=== PATIENT | male | born 1985 | race Caucasian/White ===

== ENCOUNTER 2022-01-26 22:13 | Emergency (ER) | payer OTHER ==
[2022-01-26 22:20] VITALS: TEMP 98.2
[2022-01-26 23:22] LABS: Basophils # (A) 0.1 k/uL (0-0.2); Basophils % (A) 1 %; Eosinophils # (A) 0.4 k/uL (0-0.7); Eosinophils % (A) 2 %; HCT 50.9 % (39.0-53.0); HGB 17.3 gm/dL (13.0-17.5); Lymphocytes # (A) 3.1 k/uL (1.0-4.8); Lymphocytes % (A) 16 %; MCH 32.1 pg (25.0-35.0); MCHC 33.9 g/dL (31.0-37.0); MCV 94.6 fL (80.0-100.0); Mean Platelet Volume 7.8; Monocytes # (A) 0.8 k/uL (0-1.0); Monocytes % (A) 4 %; Neutrophils # (A) 14.6 k/uL (1.3-7.7); Neutrophils % (A) 76 %; Platelet Count 279 k/uL (150-450); RBC 5.38 m/uL (4.30-5.90); WBC 19.3 k/uL (3.8-10.6)
[2022-01-26 23:23] LABS: Appearance,Urine Clear (Clear); Bilirubin,Urine Negative (Negative); Blood,Urine Negative (Negative); Color,Urine Yellow; Glucose,Urine (UA) Negative (Negative); Ketones,Urine Negative (Negative); Leukocyte Esterase,Urine Negative (Negative); Nitrite,Urine Negative (Negative); PH, Urine 5.5 (5.0-8.0); Protein,Urine Negative (Negative); Specific Gravity,Urine 1.019 (1.001-1.035)
[2022-01-26 23:36] LABS: ALT 42 U/L (4-49); AST 38 U/L (17-59); African American GFR (CKD) >90 (>60 ml/min/1.73 sqM); Albumin 4.5 g/dL (3.5-5.0); Alkaline Phosphatase 78 U/L (38-126); Anion Gap 10 mmol/L; Blood Urea Nitrogen 14 mg/dL (9-20); Calcium 9.6 mg/dL (8.4-10.2); Carbon Dioxide 24 mmol/L (22-30); Chloride 102 mmol/L (98-107); Glucose 102 mg/dL (74-99); Non-African American GFR(CKD) >90 (>60 ml/min/1.73 sqM); Potassium 4.3 mmol/L (3.5-5.1); Sodium 136 mmol/L (137-145); Total Bilirubin 0.8 mg/dL (0.2-1.3)
[2022-01-27 00:04] LABS: Amylase 47 U/L (30-110); Lipase 82 U/L (23-300)
--- NOTE | 2022-01-27 00:50 | US ---
EXAMINATION TYPE: US abdomen limited DATE OF EXAM: 01/27/2022 COMPARISON: NONE CLINICAL HISTORY: attention RUQ. Patient has right flank pain EXAM MEASUREMENTS: Liver Length: 21.1 cm Gallbladder Wall: 0.24 cm CBD: 0.39 cm Right Kidney: 11.9 x 4.8 x 5.8 cm Pancreas: Obscured by bowel gas Liver: Increased attenuation, decreased visualization of vessels suggestive of fatty infiltrate Gallbladder: Appears slightly contracted; patient ate 3 hours ago. Evidence for sonographic Schreiber's sign: No CBD: wnl Right Kidney: No hydronephrosis or masses seen as visualized IMPRESSION: No gallstones or dilated ducts. No evidence of right-sided renal mass or obstruction. There is probab ly some fatty infiltration of the liver.
[2022-01-27 01:31] VITALS: BP 132/83; PULSE 87; RESP 16
--- NOTE | 2022-01-27 01:48 | CT ---
EXAMINATION TYPE: CT abdomen pelvis wo con DATE OF EXAM: 01/27/2022 COMPARISON: None HISTORY: right side flank pain CT DLP: 1440.4 mGycm Automated exposure control for dose reduction was used. Images obtained from the diaphragm to the floor the pelvis without contrast. Lung bases are clear. There is no pleural effusion. Heart size is normal. There is no pericardial eff usion. Liver spleen and stomach pancreas and gallbladder appear intact. Gallbladder is somewhat contracted. The bile ducts are not dilated. There is no adrenal mass. Kidneys of normal size. There is no hydronephrosis. Ureters are not dilated . Appendix is posterior and appears normal. Bladder distends smoothly. There is no inguinal hernia. N o free fluid in the pelvis. There is no mesenteric edema. There is no ascites or free air. There is no bowel obstruction. There a re a few sigmoid diverticula. No diverticulitis. The lumbar vertebrae have normal alignment. There is no compression fracture. Posterior elements are intact. Bony pelvis is intact. IMPRESSION: Normal appendix. No evidence of renal stone or obstruction. There are a few sigmoid diverticula witho ut diverticulitis.
[2022-01-27] MEDS ORDERED: traMADol 50 MG STARTER PACK 3 TAB BTL PO STA (03:43)
--- NOTE | 2022-01-27 03:43 | ED ---
Abdominal Pain HPI - General Chief Complaint: Abdominal Pain Stated Complaint: RT side pain Time Seen by Provider: 01/26/22 22:54 Source: patient Mode of arrival: ambulatory Limitations: no limitations - History of Present Illness MD Complaint: abdominal pain, flank pain Onset/Timin -: days(s) Location: RUQ, RLQ, R flank Radiation: none Migration to: no migration Severity: moderate Quality: aching, dull Consistency: constant Improves With: nothing Worsens With: nothing Associated Symptoms: denies other symptoms - Related Data Previous Rx's Medication Instructions Recorded Ibuprofen 800 mg PO TID #20 tablet 01/27/22 Allergies Allergy/AdvReac Type Severity Reaction Status Date / Time No Known Allergies Allergy Verified 01/26/22 22:20 Review of Systems ROS Statement: Those systems with pertinent positive or pertinent negative responses have been documented in the HPI. ROS Other: All systems not noted in ROS Statement are negative. Constitutional: Denies: fever, chills Respiratory: Denies: cough, dyspnea Cardiovascular: Denies: chest pain, palpitations Gastrointestinal: Reports: as per HPI, abdominal pain. Denies: nausea, vomiting, diarrhea, constipation Genitourinary: Denies: dysuria, frequency, hematuria, testicular pain, testicular mass Musculoskeletal: Denies: back pain Skin: Denies: rash Neurological: Denies: headache, weakness Past Medical History Additional Past Medical History / Comment(s): back pain History of Any Multi-Drug Resistant Organisms: None Reported Past Surgical History: No Surgical Hx Reported Past Psychological History: Bipolar Smoking Status: Current every day smoker Past Alcohol Use History: Rare Past Drug Use History: Marijuana General Exam Limitations: no limitations General appearance: alert, in no apparent distress Head exam: Present: atraumatic, normocephalic Eye exam: Present: normal appearance. Absent: scleral icterus, conjunctival injection ENT exam: Present: normal oropharynx Neck exam: Present: normal inspection Respiratory exam: Present: normal lung sounds bilaterally. Absent: respiratory distress, wheezes, rales, rhonchi, stridor Cardiovascular Exam: Present: regular rate, normal rhythm, normal heart sounds. Absent: systolic murmur, diastolic murmur, rubs, gallop GI/Abdominal exam: Present: soft, tenderness (Right abdominal tenderness both upper and lower there is no rebound or guarding.). Absent: distended, guarding, rebound, rigid, mass, hernia Extremities exam: Present: normal inspection, normal capillary refill. Absent: pedal edema, calf tenderness Back exam: Present: normal inspection. Absent: CVA tenderness (R), CVA tenderness (L) Neurological exam: Present: alert Skin exam: Present: warm, dry, intact, normal color. Absent: rash Course Vital Signs 01/26/22 01/27/22 22:18 01:30 Temperature 98.2 F Pulse Rate 106 H 87 Respiratory 20 16 Rate Blood Pressure 145/85 132/83 O2 Sat by Pulse 96 98 Oximetry Medical Decision Making - Medical Decision Making Patient's 36-year-old man with right-sided abdominal pain and some mild tenderness. The patient's workup does not reveal either evidence of appendicitis, kidney stone or biliary disease. Patient is feeling somewhat better following medications. Discussed appropriate further care and follow-up as well as return parameters. - Lab Data Result diagrams: 01/26/22 23:14 01/26/22 23:14 Lab Results 01/26/22 01/26/22 01/26/22 Range/Units 22:32 23:14 23:14 WBC 19.3 H (3.8-10.6) k/uL RBC 5.38 (4.30-5.90) m/uL Hgb 17.3 (13.0-17.5) gm/dL Hct 50.9 (39.0-53.0) % MCV 94.6 (80.0-100.0) fL MCH 32.1 (25.0-35.0) pg MCHC 33.9 (31.0-37.0) g/dL RDW 13.0 (11.5-15.5) % Plt Count 279 (150-450) k/uL MPV 7.8 Neutrophils % 76 % Lymphocytes % 16 % Monocytes % 4 % Eosinophils % 2 % Basophils % 1 % Neutrophils # 14.6 H (1.3-7.7) k/uL Lymphocytes # 3.1 (1.0-4.8) k/uL Monocytes # 0.8 (0-1.0) k/uL Eosinophils # 0.4 (0-0.7) k/uL Basophils # 0.1 (0-0.2) k/uL Sodium (137-145) mmol/L Potassium (3.5-5.1) mmol/L Chloride (98-107) mmol/L Carbon Dioxide (22-30) mmol/L Anion Gap mmol/L BUN (9-20) mg/dL Creatinine (0.66-1.25) mg/dL Est GFR (CKD-EPI)AfAm (>60 ml/min/1.73 sqM) Est GFR (CKD-EPI)NonAf (>60 ml/min/1.73 sqM) Glucose (74-99) mg/dL Calcium (8.4-10.2) mg/dL Total Bilirubin (0.2-1.3) mg/dL AST (17-59) U/L ALT (4-49) U/L Alkaline Phosphatase (38-126) U/L Total Protein (6.3-8.2) g/dL Albumin (3.5-5.0) g/dL Amylase 47 (30-110) U/L Lipase 82 (23-300) U/L Urine Color Yellow Urine Appearance Clear (Clear) Urine pH 5.5 (5.0-8.0) Ur Specific Boelus 1.019 (1.001-1.035) Urine Protein Negative (Negative) Urine Glucose (UA) Negative (Negative) Urine Ketones Negative (Negative) Urine Blood Negative (Negative) Urine Nitrite Negative (Negative) Urine Bilirubin Negative (Negative) Urine Urobilinogen 2.0 (<2.0) mg/dL Ur Leukocyte Esterase Negative (Negative) 01/26/22 Range/Units 23:14 WBC (3.8-10.6) k/uL RBC (4.30-5.90) m/uL Hgb (13.0-17.5) gm/dL Hct (39.0-53.0) % MCV (80.0-100.0) fL MCH (25.0-35.0) pg MCHC (31.0-37.0) g/dL RDW (11.5-15.5) % Plt Count (150-450) k/uL MPV Neutrophils % % Lymphocytes % % Monocytes % % Eosinophils % % Basophils % % Neutrophils # (1.3-7.7) k/uL Lymphocytes # (1.0-4.8) k/uL Monocytes # (0-1.0) k/uL Eosinophils # (0-0.7) k/uL Basophils # (0-0.2) k/uL Sodium 136 L (137-145) mmol/L Potassium 4.3 (3.5-5.1) mmol/L Chloride 102 (98-107) mmol/L Carbon Dioxide 24 (22-30) mmol/L Anion Gap 10 mmol/L BUN 14 (9-20) mg/dL Creatinine 0.79 (0.66-1.25) mg/dL Est GFR (CKD-EPI)AfAm >90 (>60 ml/min/1.73 sqM) Est GFR (CKD-EPI)NonAf >90 (>60 ml/min/1.73 sqM) Glucose 102 H (74-99) mg/dL Calcium 9.6 (8.4-10.2) mg/dL Total Bilirubin 0.8 (0.2-1.3) mg/dL AST 38 (17-59) U/L ALT 42 (4-49) U/L Alkaline Phosphatase 78 (38-126) U/L Total Protein 8.0 (6.3-8.2) g/dL Albumin 4.5 (3.5-5.0) g/dL Amylase (30-110) U/L Lipase (23-300) U/L Urine Color Urine Appearance (Clear) Urine pH (5.0-8.0) Ur Specific Boelus (1.001-1.035) Urine Protein (Negative) Urine Glucose (UA) (Negative) Urine Ketones (Negative) Urine Blood (Negative) Urine Nitrite (Negative) Urine Bilirubin (Negative) Urine Urobilinogen (<2.0) mg/dL Ur Leukocyte Esterase (Negative) Disposition Clinical Impression: Flank pain Disposition: HOME SELF-CARE Condition: Good Prescriptions: Ibuprofen 800 mg PO TID #20 tablet Is patient prescribed a controlled substance at d/c from ED?: No Referrals: None,Stated [Primary Care Provider] - 1-2 days
== END 2022-01-27 03:54 | disposition home or self-care (01) ==
LOC: EC 22:13
DX: K57.30 Diverticulosis of large intestine without perforation or abscess without bleeding (principal); F31.9 Bipolar disorder, unspecified; F17.200 Nicotine dependence, unspecified, uncomplicated; F12.90 Cannabis use, unspecified, uncomplicated
CPT/HCPCS: 36415; 74176; 76705; 80053; 81003; 82150; 83690; 85025; 99284

== ENCOUNTER → 2023-03-03 | Outpatient (CLI) | payer OTHER ==
--- NOTE | 2023-03-03 13:20 | CT ---
EXAMINATION TYPE: CT abdomen pelvis w con DATE OF EXAM: 03/03/2023 COMPARISON: 03/29/2022 HISTORY: LUQ pain when breathing x3 weeks CT DLP: 2729.1 mGycm CONTRAST: CT scan of the abdomen and pelvis is performed with Oral Contrast and with IV Contrast, patient injec gale with 100 mL of Isovue 300. FINDINGS: LUNG BASES-: No visible nodule. No infiltrate. LIVER/GB: No calcified gallstones. No space occupying hepatic lesion. Biliary tree is of normal ca liber. There is persistent hepatomegaly with underlying hepatic steatosis. The gallbladder is contrac gale. PANCREAS: No inflammation. No distinct mass. SPLEEN: No splenic enlargement. No lesion seen. ADRENALS: No nodule. No thickening. KIDNEYS/BLADDER: No hydronephrosis. No nephrolithiasis. Simple cyst midpole left kidney measuring 2 cm. Cyst Urinary bladder grossly unremarkable. BOWEL: Normal appendix. Normal bowel caliber. No inflammation. GENITAL ORGANS: No gross abnormality. LYMPH NODES: No greater than 1cm abdominal or pelvic lymph nodes are appreciated. AORTA: No significant abnormality. OSSEOUS STRUCTURES: No significant abnormality is seen. OTHER: No significant additional abnormality is seen. IMPRESSION: 1. Hepatomegaly with underlying hepatic steatosis. 2. Simple cyst left kidney.
== END | disposition home or self-care (01) ==
LOC: RADCTMAIN 10:44
PROVIDERS: ATTEND Internal Medicine Geriatric Medicine
DX: K76.0 Fatty (change of) liver, not elsewhere classified (principal); N28.1 Cyst of kidney, acquired; R16.0 Hepatomegaly, not elsewhere classified
CPT/HCPCS: 74177; Q9967

== ENCOUNTER → 2023-07-01 | Outpatient (CLI) | payer OTHER ==
--- NOTE | 2023-07-01 12:57 | CT ---
EXAMINATION TYPE: CT lumbar spine wo con DATE OF EXAM: 07/01/2023 COMPARISON: CT abdomen pelvis 03/03/2023 and radiograph 06/28/2023 HISTORY: 38-year-old male S32.020A M47.817 M54.50, pain, compression fracture TECHNIQUE: Contiguous axial scanning of the lumbar spine without IV contrast. Coronal and sagittal re constructions performed. CT DLP: 1020 mGycm Automated exposure control for dose reduction was used. FINDINGS: There is underlying severe hepatic steatosis. There is a vertical fracture of the L1 vertebral body oriented in the coronal plane with secondary nichole perior and inferior endplate compression injuries. Secondary mild anterior wedging with overall 25% a nterior height loss. Minimal retropulsion impressing on the ventral thecal sac but without significan t spinal canal stenosis. Mild hazy paravertebral swelling favoring a more subacute fracture but should be correlated clinicall y. Mild facet arthropathy lower lumbar spine. Allowing for CT technique, no evident canal compromise. There may be mild left neuroforaminal narrowi ng at L5-S1 and mild on the right at L4-L5. IMPRESSION: 1. VERTICAL FRACTURE OF THE L1 VERTEBRAL BODY ORIENTED IN THE CORONAL PLANE WITH SECONDARY ANTERIOR W EDGE DEFORMITY. OVERALL 25% ANTERIOR HEIGHT LOSS. MINIMAL RETROPULSION IMPRESSING ON THE VENTRAL THEC AL SAC BUT WITHOUT SIGNIFICANT SPINAL CANAL STENOSIS. 2. CORRELATE TO TIME SINCE INJURY, A SUBACUTE FRACTURE IS FAVORED. 3. CLINICAL FOLLOW-UP AND MANAGEMENT FOR THE PATIENT'S HEPATIC STEATOSIS.
== END | disposition home or self-care (01) ==
LOC: RADCTMAIN 12:29
PROVIDERS: ATTEND Orthopaedic Surgery
DX: S32.010A Wedge compression fracture of first lumbar vertebra, initial encounter for closed fracture (principal); S32.020A Wedge compression fracture of second lumbar vertebra, initial encounter for closed fracture; M47.817 Spondylosis without myelopathy or radiculopathy, lumbosacral region; K76.0 Fatty (change of) liver, not elsewhere classified; X58.XXXA Exposure to other specified factors, initial encounter
CPT/HCPCS: 72131

== ENCOUNTER → 2023-07-14 | Outpatient (CLI) | payer OTHER ==
--- NOTE | 2023-07-15 12:46 | MR ---
EXAMINATION TYPE: MR lumbar spine wo con DATE OF EXAM: 07/14/2023 COMPARISON: CT lumbar spine 07/01/2023 HISTORY: L1 fx , acute pain CONTRAST: 0 mL intravenous Gadavist. TECHNIQUE: Multiplanar, multisequence images of the lumbar spine were acquired on 3.0 Brandi magnet. FINDINGS: L5-S1: Minimal disc bulge is present slightly greater to the left paracentral region with anterior th ecal sac contact. No impression is evident. No spinal canal stenosis is present. No foraminal stenosi s. . L4-L5: Some disc desiccation is present. Broad-based disc bulge has mild anterior thecal sac compress ion. No AP spinal canal stenosis present. Mild right moderate left foraminal narrowing is present. L3-L4: No significant disc bulge or disc herniation. No spinal canal stenosis. No foraminal stenosi s. L2-L3: Mild broad-based disc bulge with anterior thecal sac flattening. No AP spinal canal stenosis. Neural foramen are patent. L1-L2: There is increased signal through the L1 vertebral body on T2-weighted sequences. Minimal ante rior thecal sac flattening is present at the upper vertebral body is present. There are signal areas within the vertebral body compatible with fracture. Some loss of vertebral body height is evident. F indings were present on the comparison CT examination. No spinal canal stenosis. T12-L1: No significant disc bulge or disc herniation. No spinal canal stenosis. No foraminal stenos is. IMPRESSION: 1. Burst fracture of L1 with extremely subtle posterior wall displacement in the upper posterior vert ebral body. No spinal canal stenosis or cord contact is evident. 2. Mild broad-based disc bulge has anterior thecal sac flattening and L2-3. 3. Broad-based disc bulge with mild anterior thecal sac compression at L4-5. No spinal canal stenosis is evident. 4. Very minimal disc bulging left paracentral region L5-S1 without spinal canal stenosis or significa nt thecal sac compression.
== END | disposition home or self-care (01) ==
LOC: RADMRIMAIN 13:30
PROVIDERS: ATTEND Orthopaedic Surgery
DX: S32.011A Stable burst fracture of first lumbar vertebra, initial encounter for closed fracture (principal); S32.020A Wedge compression fracture of second lumbar vertebra, initial encounter for closed fracture; M47.817 Spondylosis without myelopathy or radiculopathy, lumbosacral region; M51.27 Other intervertebral disc displacement, lumbosacral region; X58.XXXA Exposure to other specified factors, initial encounter
CPT/HCPCS: 72148

== ENCOUNTER → 2023-07-20 | Outpatient (CLI) | payer OTHER | END | disposition home or self-care (01) | LOC: LABPAT 12:48 | PROVIDERS: ATTEND Orthopaedic Surgery | DX: Z01.812 Encounter for preprocedural laboratory examination (principal); S32.01 Fracture of first lumbar vertebra; Z22.322 Carrier or suspected carrier of Methicillin resistant Staphylococcus aureus; X58.XXXA Exposure to other specified factors, initial encounter | CPT/HCPCS: 87070 ==

== ENCOUNTER 2023-07-22 09:45 | Inpatient (IN) | payer OTHER ==
[~2023-07-22 09:45] MED LIST: ACETAMINOPHEN TAB 500 MG TAB PO PRN; GABAPENTIN 300 MG CAP PO PRN; ONDANSETRON 4 MG/2 ML VIAL IVP PRN; TRANEXAMIC 1,000 MG/100ML-NACL 1,000 MG in SALINE 1 100ML.BAG IVPB PRN; ceFAZolin 3 GM in SODIUM CHLORIDE 0.9% 100 ML IVPB PRN
[2023-07-22] MEDS ORDERED: DEXAMETHASONE SOD PHOSPHATE 4 MG/ML 1 ML VIAL IV ONE (15:17)
[2023-07-22] MEDS ORDERED: HYDROmorphone 0.5 MG/0.5 ML SYRINGE IVP PRN ×2 (15:17→20:51)
[2023-07-22] MEDS ORDERED: LIDOCAINE 1% (10MG/ML) FOR IV START INTRADERMA PRN (15:17)
[2023-07-22] MEDS ORDERED: MIDAZOLAM 2 MG/2 ML VIAL IV PRN (15:17)
[2023-07-22] MEDS ORDERED: ONDANSETRON 4 MG/2 ML VIAL IVP ONE (15:17)
[2023-07-22] MEDS ORDERED: LACTATED RINGERS 1,000 ML IV SCH (15:17)
[2023-07-22 15:49] LABS: Glucose,Whole Blood 140 mg/dL (70-110)
--- NOTE | 2023-07-22 17:30 | P.HPOR ---
History of Present Illness H&P Date: 07/22/23 Chief Complaint: back pain 38 yo male 1.5 weeks ago was eating a chicken wing when he choked on it, passed out and fell backwards hitting his head and back. He had extreme back pain after this and went to the ED for eval. He was found to have an L1 burst fracture and was sent home with pain control and follow up. He saw my HOTEL HOUSEMAN Jeniffer Aquino who recognized the fracture and had me look at images and review chart. We immediately boarded him for surgery and he was brought it. I am evaluating him today in the pre op area. We discussed his history as well as his imaging, labs, fracture type plan. Possible non operative options as well as operative options. He agrees that he would like surgical fixation given the fracture nature and possibility of further progression and kyphosis as well as his pain level which is 10/10 at this time. He states no bowel or bladder issues. No perineal numbness/tingling. no F/c/sob/cp at this time. Review of Systems All systems: negative Constitutional: Reports as per HPI Past Medical History Past Medical History: Asthma, Diabetes Mellitus, Hyperlipidemia, Sleep Apnea/CPAP/BIPAP Additional Past Medical History / Comment(s): Chronic back pain, L1 burst fracture, SHIRLEY with bipap. History of Any Multi-Drug Resistant Organisms: None Reported Past Surgical History: No Surgical Hx Reported Additional Past Surgical History / Comment(s): colonoscopy Past Anesthesia/Blood Transfusion Reactions: No Reported Reaction Past Psychological History: Bipolar Smoking Status: Current every day smoker Past Alcohol Use History: None Reported Additional Past Alcohol Use History / Comment(s): Pt started smoking in 2000 and is an off and on smoker, ppd. Past Drug Use History: Marijuana Additional Drug Use History / Comment(s): Occasional marijuana - Past Family History Father Family Medical History: Cancer, Diabetes Mellitus Additional Family Medical History / Comment(s): Depression Mother Family Medical History: Diabetes Mellitus Medications and Allergies Home Medications Medication Instructions Recorded Confirmed Type Acetaminophen Tab [Tylenol Tab] 1,000 mg PO Q6HR PRN 07/21/23 07/22/23 History Cariprazine HCl [Vraylar] 3 mg PO QAM 07/21/23 07/22/23 History FLUoxetine HCL [PROzac] 40 mg PO QAM 07/21/23 07/22/23 History Fenofibrate [Lipofen] 145 mg PO QAM 07/21/23 07/22/23 History Montelukast [Singulair] 10 mg PO HS 07/21/23 07/22/23 History Omeprazole [PriLOSEC] 20 mg PO QAM 07/21/23 07/22/23 History Rosuvastatin [Crestor] 10 mg PO QAM 07/21/23 07/22/23 History metFORMIN HCL 500 mg PO BID 07/21/23 07/22/23 History Allergies Allergy/AdvReac Type Severity Reaction Status Date / Time No Known Allergies Allergy Verified 07/22/23 15:27 Physical Examination Osteopathic Statement: *. No significant issues noted on an osteopathic structural exam other than those noted in the History and Physical/Consult. Physical Exam: -Patient is alert and oriented 3 appears well-nourished well-hydrated is in no acute distress. They do not appear septic. -There is TTP lumbar spine around T12-L1 region midline as well as paraspinal -Upper extremities show [5] out of 5 strength in all major muscle groups. -Lower extremities with [5] out of 5 strength in all major muscle groups -There is [FROM] that is [painless] of the b/l UE and LE in all major joints. this increases his pain -They are intact to light touch sensation in C5 to T1 and L2 to S1 nerve distribution. -DTR [2]/4 all upper and lower extremities -Patient has palpable distal pulses all 4 ext -Compartments are soft and compressible. -Patient shows a negative Mindy's [-Neg Hoffmans b/l] [-Neg Clonus b/l] [-Neg babinski b/l] Cranial nerves II through XII are grossly intact. Results x-rays lumbar spine images are reviewed and demonstrate an L1 burst compression type fracture with kyphotic deformity. There is progression over the last 2 weeks of kyphosis up to 22 at T12-L1. This is a AO A4 burst-type fracture CT thoracolumbar spine images are reviewed and demonstrate the aforementioned fracture at L1 with 40- 50% height loss due to compression deformity as well as kyphosis. This is a burst-type fracture AO A4 with propagation through the posterior aspects of the vertebral body and the pedicle on the left-hand side. No other fractures or lesions noted MRI lumbar spine images reviewed demonstrate L1 burst fracture AO A4 type. There is fracture lines propagating posteriorly. Posterior elements appear to likely be intact there is some edema within the interspinous ligament between L1 and L2 suggesting possible posterior involvement and instability. Stenosis is mild to moderate due to some retropulsion. No other fracture noted mild spondylosis between L3-L4. - Labs Labs: Abnormal Lab Results - Last 24 Hours (Table) 07/22/23 Range/Units 15:43 POC Glucose (mg/dL) 140 H (70-110) mg/dL Assessment and Plan Assessment: 1. L1 AO A4 burst fracture 2. Low back pain 3. Status post traumatic fall 4. Obesity Plan: Spine Surgery Clinical and Risk Review Rivera Michel is a 38-year-old male presenting for evaluation of low back pain. It was my pleasure to have seen and examined Rivera Michel. In our visit today we have had a chance to go over subjective complaints, physical examination findings and treatments including the natural course history without intervention and various interventional options. The patients imaging demonstrates L1 AO A4 burst fracture. On physical exam, Rivera demonstrates severe tenderness to palpation on the L1 region. Difficulty with ADLs and ambulation secondary to severe pain. I have explained to the patient that as their condition progresses it will cause further neurological deficits and eventual paralysis. Based on the patients imaging, physical exam, and the rapid progression and disabling nature of their symptoms, at this time I recommend surgery in the form or a: Open treatment L1 fracture with stabilization. I discussed the risk and benefits of this procedure at length with Rivera Michel. The patient Rivera Michel agreed to considered pursuing the procedure abovementioned. Prior to surgery, she should follow up with her PCP (Cardio, ID, IM etc) for clearance. Questions were invited and answ ered, and the patient wishes to proceed as outlined below. Currently, I am recommendin. open treatment L1 burst fracture with stabilization possible spine courtney placement 2. Follow up with PCP for surgical clearance 3. Review of surgical risks and benefits as well as an educational packet on the proposed surgical procedure. Risks: All surgical procedures come with inherent risks, including those related to positioning, anesthesia, intraoperative findings, and postoperative c omplications. It is important to understand that surgery does not come with any guarantee of a successful outcome as complications and adverse events are always possible. The patient was given a handout in office today discussing the surgical procedure and risks associated with the intervention, both of which were discussed with the patient. These risks include but are not limited to the foll owing: * Experiencing same, different or even worse symptoms in back, neck, arms, or legs compared to before surgery. * Requiring further surgery or other forms of treatment presently or at so me time in the future at same or other levels of the intended spine surgery. * On an extreme but fortunately relatively rare basis severe complication such as blindness, stroke, heart attack, temporary and/or permanent nerve injury, paralysis, coma, or may occur, sometimes without known explanation. * Surgical complications may include but are not limited to risk of infection, fluid accumulation in the surgical dissection site, including a seroma or hematoma, that requires additional surgery, wound drainage, bleeding, new numbness or weakness, vision changes/loss, spinal fluid leakage, non-healing and/or infected incision, headaches, difficulty or inability to swallow, hoarseness, hemopneumothorax, pneumothorax, impotence, retrograde ejaculation, vaginal dryness; injury to nerves, spinal cord, blood vessels, lymphatics or other vital organs (i.e., bowel injury, injury to the great vessels); heterotopic bone formation; complications related to the hardware such as screws, rods, cages including misplaced hardware, device failure, instrumentation at the wrong spine level, hardware fracture/breakage, or hardware loosening; vertebral failure of the spinal column above or below the newly placed hardware; retained surgical instrumentations or devices and the need for further surgery. * Medical risks of the planned spine surgery include but are not limited to generalized Infections to the whole body or local areas outside of the surgical site (sepsis), heart attack, bleeding, anaphylaxis, meningitis, seizure, epilepsy, hearing loss, burn dixon, laceration of the head or other areas of the body, bruising, hypersensitivity of the skin, bladder over distension; allergic reaction; shoulder injury related to positioning; fat, blood and air clots to other areas of the body like heart, lungs, brain; failure of internal organs such as lungs, kidneys, liver and excessive bleeding. If blood transfusions are necessary, note that transfusions may cause intolerance reactions such as anaphylaxis or other complex reactions. * Despite best efforts, the results of spine surgery might not heal in terms of bone, soft tissues such as skin, fascia, ligaments, and joints. Additionally, in order to achieve best possible results, spine surgery may be carried out beyond the initially planned levels and involve decompression, fusion including insertion of hardware at levels other than the original intended area of surgical interest change some portions of the procedure in order to ensure the best possible outcomes. * With spine surgery and spinal fusion, there are different off label uses of instrumentation (devices, implants and hardware) as well as biological substances (bone morphogenic proteins, demineralized bone matrix) as well as using extra bone from allograft sources (i.e. cadaver bone) or autograft (iliac crest bone, ribs, or the spine itself). The patient has been given information about these practices and their inherent risks and benefits. The patient has had a chance to review all the listed information, has been given print outs detailing this information, and has had all his/her questions answered to their satisfaction. It was my pleasure to have seen and examined Rivera Michel. In our visit today we have had a chance to go over my understanding of our patient's current condition, the natural course history without intervention and various interventional options. Questions were invited and answered, and the patient wishes to proceed as outlined above. I have seen and examined the patient for 25 minutes and we have spent more than 50% of the time in repeat and detailed counseling about the patient's condition, its natural course history with out and as much as can be predicted with surgery and re-review of various surgical treatment options. In conclusion, Rivera Michel and significant other requested we proceed with the above suggested surgery and are willing to accept risks and limitations of the suggested surgery as nature of the disease process and our best attempts at treatment for the condition. Thank you again for allowing us to be part of your patient's care. Please don't hesitate to contact me if you have any further questions. Signed and authenticated by: Lenin [facility] [address] [facility], [address] [address]
[2023-07-22] MEDS ORDERED: BUPIVACAINE (PF) 0.25% 30 ML VIAL SQ ONE (18:50)
[2023-07-22] MEDS ORDERED: THROMBIN (BOVINE) 5,000 UNIT VIAL TOPICAL ONE (18:51)
[2023-07-22] MEDS ORDERED: GELATIN SPONGE,ABSORB (LARGE) 1 EACH SPONGE TOPICAL ONE (18:51)
[2023-07-22] MEDS ORDERED: IOPAMIDOL M200 10 ML VIAL MISCELLANE ONE (19:05)
[2023-07-22] MEDS ORDERED: LACTATED RINGERS 1,000 ML IV ONE (19:09)
[2023-07-22] MEDS ORDERED: VANCOMYCIN 1,000 MG VIAL MISCELLANE ONE (20:33)
[2023-07-22] MEDS ORDERED: bisacodyL 10 MG SUPP RECTAL PRN (20:51)
[2023-07-22] MEDS ORDERED: MAGNESIUM HYDROXIDE 2,400 MG/30 ML CUP PO PRN (20:51)
[2023-07-22] MEDS ORDERED: SENNOSIDES-DOCUSATE SODIUM 1 EACH TAB PO PRN (20:51)
[2023-07-22] MEDS ORDERED: ONDANSETRON 4 MG/2 ML VIAL IVP PRN (20:51)
[2023-07-22] MEDS ORDERED: CYCLOBENZAPRINE 10 MG TAB PO PRN (20:51)
--- NOTE | 2023-07-22 20:52 | P.OP ---
Date of Procedure: 07/22/23 Preoperative Diagnosis: 1. L1 AO A4 burst fracture 2. low back pain, severe 3. s/p FFS after choking 4. chronic pain Postoperative Diagnosis: 1. L1 AO A4 burst fracture 2. low back pain, severe 3. s/p FFS after choking 4. chronic pain Procedure(s) Performed: 1. Open treatment L1 fracture (62511) 2. Segmental instrumentation T10-L3 (89794) 3. INsertion of Spine Nathan with cement L1 (17554) 4. Biopsy of L1 vertebral body using flouroscopic guidance ()/59 5. Use of [place] Navigation for screw placement (21513) This procedure took 50% longer than anticipated due to patient's body habitus, his tolerance for anesthetic medications and movement on the table, comorbid conditions (Mod 22) Use of IONM all screws testing >20 mA Implants: -[place] screw and kati system -Spine Nathan x2 -Cement Anesthesia: GETA Surgeon: Lenin Unger Paper Reeler #1: Chalino Goddard (SARI Torres Was present and assisted with all aspects of the case from positioning to dressing placement) Estimated Blood Loss (ml): 200 IV fluids (ml): 2,500 Urine output (ml): 350 Pathology: none sent Condition: stable Disposition: PACU Indications for Procedure: Rivera Michel is a 38-year-old male presenting for evaluation of low back pain. It was my pleasure to have seen and examined Rivera Michel. In our visit today we have had a chance to go over subjective complaints, physical examination findings and treatments including the natural course hi story without intervention and various interventional options. The patients imaging demonstrates L1 AO A4 burst fracture. On physical exam, Rivera demonstrates severe tenderness to palpation on the L1 region. Difficulty with ADLs and ambulation secondary to severe pain. I have explained to the patient that as their condition progresses it will cause further neurological deficits and eventual paralysis. Based on the patients imaging, physical exam, and the rapid progression and disabling nature of their symptoms, at this time I recommend surgery in the form or a: Open treatment L1 fracture with stabilization. I discussed the risk and benefits of this procedure at length with Rivera Michel. The patient Rivera Michel agreed to considered pursuing the procedure abovementioned. Prior to surgery, she should follow up with her PCP (Cardio, ID, IM etc) for clearance. Questions were invited and answered, and the patient wishes to proceed as outlined below. Currently, I am recommendin. open treatment L1 burst fracture with stabilization possible spine nathan placement Description of Procedure: ORIF L1, T11-L3 stabilization with L1 spine nathan (MILTON, Pins) The patient was seen and examined in the preoperative area. All preoperative protocols were followed. Informed consent was obtained, risks and benefits of the procedure were discussed at length. Risks including bleeding infection damage to the surrounding tissue and risk of reoperation were discussed with the patient. Risk of anesthesia up to and including was discussed with the patient. These are outlined in the risk review. They were willing to accept these risks and all of the risks of surgery. The patient was given a weight-ba sed dose of antibiotics in the form of 2 g Ancef. The patient was seen and evaluated by the anesthesia team who deemed them fit for surgery. The site was marked, the patient was willing to proceed with the procedure. The patient was transferred to the operative suite by the Department of anesthesia. They were then drifted off to sleep by the department anesthesia and GETA was performed. The patient tolerated this well. [Wolf catheter was placed by nursing staff, atraumatically]. Once confirmation of lines and ventilation the patient was transferred to a [prone Fantasma table very carefull y]. All bony prominences including wrists, elbows, axilla, chest, hips, and thighs, and feet were padded very well. Special attention was paid to the genitalia and these were padded accordingly. SCDs were placed on bilateral lower extremities and were connected. Arms were well padded and placed [on arm boards up and out in the 90/90 position]. Once in position, again we confirmed good ventilation capabilities and that lines were running appropriately. The patient's thoracolumbar spine was then exposed. 1010s were placed outlining the incision site. Standard alcohol was used to clean the incision site and allowed to dry. C-arm was used to needle localize and then biomark the patient and confirm level for incision which was marked with a skin marker. Operative briefing was performed with all teams and everyone in agreement to proceed. The patient was then prepped and draped in a normal sterile fashion. Timeout was then performed and all parties were in agreement with the procedure to be performed. Skin savage was made over the PSIS for the pins for the trackers; these were drilled into the PSIS stabilized and the track was secured to this. Z drape was placed and a 3D intraoperative Zhiem spin was taken of the area. This spin was not accurate due to pt moving on the table and so a second spin was taken. Once then was registered and confirmed to be accurate, a navigated Jamshidi and drill guide were used to target pedicles bilaterally at T11 and L3. Once targeted a wire was placed and the targeting device removed. Wires were then visualized under AP and lateral imaging confirmed good placement. Pedicles of L1 were then targeted bilaterally and wires placed for the Spine Nathan system. Drill was passed and a biopsy taken of the L1 vertebral body. The trial was then placed and confirmed under AP to be in good position bilaterally. Spine jacks were expanded under lateral image simultaneously were confirmed to be in good position. These were then filled with cement. During some mentation there was no cement myelogram extravasation or arteriogram. Good cement fill was noted With good fracture reduction. We then navigated screws over wires into position in the levels indicated above. The screws were tested and all tested above 20 mA. AP and lateral confirmed good placement of screws. We then sized and selected rods for the area rods were then Bent appropriately placed subfascially through the tulips of each screw. Set screws were then placed and all screws to secure the rods bilaterally. Set screws were then final tightened and tabs broken off the screws. Final imaging confirmed good placement of rods and screws, good reduction and stabilization.. We irrigated the wounds thoroughly with normal sterile saline. The deep fascia was closed with 0 Vicryl superficial subcu closed with 2-0 Vicryl and skin closed with skin aida the wound edges approximated very well. wounds were then cleaned and sterilely dressed without dressings. The patient was transferred back to their hospital bed atraumatically. Patient was then awakened and extubated by the department of anesthesia having tolerated the procedure very well with no complications. They were transferred to the postoperative care unit in stable condition. to this procedure took 50% longer than anticipated due to patient's body habitus, his tolerance for anesthetic medications and movement on the table, comorbid conditions.
[2023-07-22] MEDS ORDERED: diazePAM 5 MG TAB PO PRN (20:54)
[2023-07-22] MEDS ORDERED: ENALAPRILAT 1.25 MG/ML 1 ML VIAL IV ONE (21:52)
[2023-07-23] MEDS: ACETAMINOPHEN TAB 500 MG TAB PO SCH ×3 (00:36→12:37)
[2023-07-23] MEDS: HYDROmorphone 1 MG/ML 1 ML SYRINGE IVP PRN ×2 (01:42→05:01)
[2023-07-23] MEDS: ceFAZolin 3 GM in SODIUM CHLORIDE 0.9% 100 ML IVPB SCH ×2 (02:25→09:07)
[2023-07-23 06:36] LABS: Basophils # (A) 0.1 k/uL (0-0.2); Basophils % (A) 0 %; Eosinophils % (A) 0 %; HCT 44.6 % (39.0-53.0); HGB 14.8 gm/dL (13.0-17.5); Lymphocytes # (A) 1.7 k/uL (1.0-4.8); Lymphocytes % (A) 9 %; MCH 31.6 pg (25.0-35.0); MCHC 33.1 g/dL (31.0-37.0); MCV 95.4 fL (80.0-100.0); Mean Platelet Volume 8.4; Monocytes % (A) 5 %; Neutrophils # (A) 16.7 k/uL (1.3-7.7); Neutrophils % (A) 85 %; Platelet Count 263 k/uL (150-450); RBC 4.68 m/uL (4.30-5.90); RDW 11.9 % (11.5-15.5); WBC 19.7 k/uL (3.8-10.6)
[2023-07-23 06:54] LABS: African American GFR (CKD) >90 (>60 ml/min/1.73 sqM); Anion Gap 7 mmol/L; Blood Urea Nitrogen 8 mg/dL (9-20); Calcium 9.2 mg/dL (8.4-10.2); Carbon Dioxide 28 mmol/L (22-30); Chloride 100 mmol/L (98-107); Glucose 197 mg/dL (74-99); Non-African American GFR(CKD) >90 (>60 ml/min/1.73 sqM); Potassium 4.6 mmol/L (3.5-5.1); Sodium 135 mmol/L (137-145)
--- NOTE | 2023-07-23 08:35 | CT ---
EXAMINATION TYPE: CT lumbar spine wo con DATE OF EXAM: 07/23/2023 4:59 AM COMPARISON: Preoperative study 07/01/2023 HISTORY: s/p thoracic/lumbar posterior stabilization Unenhanced CT of the lumbar spine was performed. Bone and soft tissue window settings are submitted as well as coronal and sagittal reconstructions. There is postoperative posterior stabilization extending from T11 through L3 with bilateral pedicular screws noted in place. There is methylmethacrylate injection at the site of previously described L1 fracture. Loss of height and bony retropulsion described previously is essentially unchanged. Surgica l soft tissue changes seen posteriorly. Vacuum changes are seen at the L1-2 disc. Postoperative align ment is appropriate. L2-L3: Normal disc space height. No disc herniation protrusion or central stenosis. No facet joint arthropathy. No evidence for foraminal encroachment. L3-L4: Normal disc space height. No disc herniation protrusion or central stenosis. No facet joint arthropathy. No evidence for foraminal encroachment. L4-L5: Normal disc space height. No disc herniation protrusion or central stenosis. No facet joint arthropathy. No evidence for foraminal encroachment. L5-S1: Normal disc space height. No disc herniation protrusion or central stenosis. No facet joint arthropathy. No evidence for foraminal encroachment. IMPRESSION: Postoperative changes as discussed with the appropriate postoperative alignment.
[2023-07-23] MEDS ORDERED: FENOFIBRATE 54 MG TAB PO SCH (09:00)
[2023-07-23] MEDS ORDERED: NON FORMULARY DRUG (Cariprazine Hcl [Vraylar] 3 MG Capsule) PO SCH (09:00)
[2023-07-23] MEDS ORDERED: ATORVASTATIN 10 MG TAB PO SCH (09:00)
[2023-07-23 09:16] VITALS: BP 146/98; PULSE 105; RESP 19; TEMP 97.7
[2023-07-23 11:40] LABS: Glucose,Whole Blood 236 mg/dL (70-110)
--- NOTE | 2023-07-23 12:11 | FL ---
EXAMINATION TYPE: FL guidance operating room, XR lumbar spine 2 or 3V DATE OF EXAM: 07/22/2023 CLINICAL HISTORY: L1 burst fracture. TECHNIQUE: Fluoroscopy. Intraoperative 2 views lumbar spine. COMPARISON: MRI lumbar spine July 14, 2023. FINDINGS: Fluoroscopic guidance was provided during open reduction internal fixation procedure perfo rmed by Dr. Unger. A total of 2 minutes 11 seconds of fluoroscopic time was utilized during the procedure and 8 spot images was acquired. Total dose area product (DAP) in uGy*m?, mGy*cm? (or escobar lar: 14,270.76. Intraoperative images acquired show vertebroplasty at L1 level with bilateral interpedicular rods and screws running from T11 through the L3 levels. IMPRESSION: As Above.
--- NOTE | 2023-07-23 12:21 | P.PN ---
Progress Note - Text Progress Note Date: 07/22/23 Postop: . Patient seen and examined they are doing well. Their pain is under control at this time. They are moving all 4 extremities without any issues. Vital signs are stable.. They are currently recovering and will be transferred to the floor once deemed stable by the PACU team and anesthesiologist. No Other issues at this time they deny fever chills shortness of breath or chest pain. [Medical management pending] [Continue with intravenous fluids, pain medication, muscle relaxers, home medication] [Soft diet to start to advance as tolerated] We will evaluate the patient in the morning.
[2023-07-23] MEDS ORDERED: INSULIN ASPART (NovoLOG) 100 UNIT/ML VIAL SQ SCH (12:30)
--- NOTE | 2023-07-23 13:50 | P.PN ---
Subjective Progress Note Date: 07/23/23 Principal diagnosis: Status post ORIF L1 burst fracture, posterior stabilization T10-L3 Patient is evaluated today at bedside, he is resting comfortably in bed. He's been up and ambulating with the assistance of walker. His pain is currently controlled. He is urinating with no issues, he is passing gas. He denies any numbness or tingling to the genital appearing region, he denies any numbness or tingling to the bilateral lower upper extremities. He denies headaches, lig htheadedness, chest pain or shortness of breath. Objective - Vital Signs Vital signs: Vital Signs Temp 97.7 F 07/23/23 08:40 Pulse 105 H 07/23/23 08:40 Resp 19 07/23/23 08:40 BP 146/98 07/23/23 08:40 Pulse Ox 91 L 07/23/23 08:40 FiO2 Intake & Output 07/22/23 07/23/23 07/23/23 18:59 06:59 18:59 Intake Total 1100 1200 Output Total 800 775 Balance 300 425 Weight 131.1 kg 131.1 kg Intake: IV 1100 1200 Output: Urine 700 775 Estimated Blood Loss 100 Other: Voiding Method Urinal Toilet Urinal # Voids 1 - Exam Gen: AOx3, NAD VSS stable at this time Integument: Postoperative bandages are good position and condition, no active drainage Palpation: Mild tenderness to the midline and paraspinal region of the lower thoracic and upper lumbar spine ROM: Full range of motion in all major muscle groups of the bilateral upper and lower extremities, no focal deficits Sensory Exam: Senory exam to light touch is intact C5-T1 Senosry exam to light touch is intact L2-S1 Motor: 5/5 strength appreciated in the bilateral upper extremities with shoulder abduction, shoulder elevation, elbow extension, elbow flexion, wrist extension, wrist flexion, 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 5/5 strength appreciated in the bilateral lower extremities with hip flexion, knee extension, knee flexion, plantar flexion, dorsiflexion, EHL, FHL Reflexes: 2/4 in all UE and LE Negative Shannon's, Babinski, clonus bilaterally Special Test: Negative straight leg raise bilaterally - Labs CBC & Chem 7: 07/23/23 06:20 07/23/23 06:20 Labs: Abnormal Lab Results - Last 24 Hours (Table) 07/22/23 07/23/23 07/23/23 Range/Units 15:43 06:20 06:20 WBC 19.7 H (3.8-10.6) k/uL Neutrophils # 16.7 H (1.3-7.7) k/uL Sodium 135 L (137-145) mmol/L BUN 8 L (9-20) mg/dL Glucose 197 H (74-99) mg/dL POC Glucose (mg/dL) 140 H (70-110) mg/dL 07/23/23 Range/Units 11:38 WBC (3.8-10.6) k/uL Neutrophils # (1.3-7.7) k/uL Sodium (137-145) mmol/L BUN (9-20) mg/dL Glucose (74-99) mg/dL POC Glucose (mg/dL) 236 H (70-110) mg/dL Assessment and Plan Assessment: Postoperative day #1 status post L1 burst fracture ORIF, posterior stabilization T10L3 Plan: Pain control, plan for discharge on Percocet 7.5 mg/325, this will be a 3 day supply, he was instructed to contact the office on Tuesday we would start decreasing pain medication use. We'll also use a muscle relaxer as needed. DVT prophylaxis, patient is utilized CARTER hose during hospital stay, no medications for home Wound care instructions discussed, this will include window removed bandage along with showering instructions Activity level resections were discussed today, patient will utilize walker for ambulation. He will avoid bending, twisting and lifting at this time Medical recommendations appreciated Discharge planning: Patient is stable for discharge to home today Time with Patient: Less than 30
--- NOTE | 2023-07-23 13:56 | P.DS ---
Providers Date of admission: 07/22/23 14:50 Expected date of discharge: 07/23/23 Attending physician: Lenin Unger DO Consults: 07/22/23 20:53 Consult Physician Routine Consulting Provider: Vishal Shrestha Consult Reason/Comments: medical management Do you want consulting provider notified?: Yes Primary care physician: [facility] Course: Date of admission: 07/22/2023 Date of discharge: 07/23/2023 Admission diagnosis: Status post L1 burst fracture ORIF, posterior stabilization T10-L3 Discharge diagnosis: Same Attending physician: Dr. Unger Surgical procedures: L1 burst fracture ORIF, posterior stabilization T10-L3 Brief history: Patient is a to [id number] male with a history of a recent trauma that resulted in an L1 burst fracture. Patient was initially evaluated in the outpatient setting, conservative measures were discussed for surgical intervention. Surgical intervention was decided on, he was scheduled for surgery for 07/22/2023. Hospital course: Details of patient's surgery can be found in operative report. Patient tolerated the procedure well and was subsequently transported to orthopedic floor. Patient's orthopeidc and medical care was provided daily. Patient had daily laboratory tests performed for evaluation of overall blood counts. Patient had daily physical therapy to include strengthening range of motion as well as education with walker ambulation. Patient was treated with CARTER hose for their postoperative DVT prophylaxis during their inpatient stay. Patient was noted to have a relatively uneventful postoperative course. Patient reported satisfactory pain control with oral pain medications by postoperative day 0. Patient showed satisfactory progress with physical therapy. Patient moved steadily through the program and had no difficulty meeting the goals by postoperative day 1. Given patient's otherwise satisfactory course and having met physical therapy goals, plan is to discharge patient [home] on postoperative day 1. Discharge condition/disposition: Patient will be discharged [home] in stable condition. Discharge medications: Instructions are given on resumption of patient's normal daily medications per primary care recommendation, in addition patient will be prescribed Percocet 7.5 mg/325 mg, Flexeril 10 mg, Duricef 500 mg, senna S. Spine Discharge and Recovery Instructions Medications: See medication list All medication refills should be obtained through your primary care doctor or your clinic spine surgeon. Please discuss prescription refills at your follow up appointment. Do not call the hospital for medication refills. Dressing: Leave your dressing in place for a total of 5 days post operatively. Then you may remove your dressing and leave open to air. Keep the area clean and if not able to keep area clean, then cover with sterile gauze and tape. Showering: You may shower 3 days after your procedure allowing soap and water to run over incision. Do not scrub. Do not soak. Blot dry. Follow up: Please confirm a follow up appointment with your surgeon 3 weeks post operatively. Please make an appointment to follow up with your PCP in 1-2 weeks after surgery for evaluation 3 phase, 3-week plan POST OP WEEKS 1-3 1. Lifting/carrying/pushing/pulling limited to less than 5 pounds. 2. Do not sit for longer than 15 minutes at one time. Get up and walk around. Prolonged sitting is NOT advised. If you lay down, see if you can tolerate laying down on you front (belly side) 3. Walk for periods of 15 minutes = 1 mile but no longer; do it multiple times times each day. 4. Ice your low back after activity. POST OP WEEKS 3-6 1. Lifting limited to less than 20 pounds. 2. Do not sit for longer than 30 minutes at a time. Frequently change positions. Use a sit-to stand workstation or take frequent breaks from sitting if you have returned to work. 3. Walk for 30 minutes each day. If possible, do these three or more times a day POST OP WEEKS 6+ At your 6-week appointment we will give you a physical therapy referral to focus on a core stabilization and strengthening program. You should also work on leg & buttock strengthening, hamstring & quadriceps stretching, and continue a low impact aerobic activity program such as swimming, walking, or riding a stationary bicycle. During the initial 6 weeks after your surgery, you are at the highest risk of re-injuring your spine. You should generally avoid BLTs (bending, lifting and twisting combination motions) and follow the above guidelines to reduce the chance of reinjury. You can anticipate post op appointments in our office at approximately 3 weeks and 6 weeks after your surgery. INCISION CARE: If your incision is not draining you do NOT need to cover it with a dressing. Keep your incision clean, dry and intact. In most cases, we apply skin glue, aida or sutures to the incision at the time of surgery. This will be like a crust or have the appearance of a scab and will fall off in time on its own. The stitches or aida need to be removed at 3 weeks post op appointment. You may begin to shower 3 days after surgery (this allows the glue to francisco well). However, please avoid scrubbing the incision site or peeling off any of the skin glue. This will ensure optimal healing of your incision. Also, during this time avoid soaking the incision area in water - this includes swimming pools, hot tubs or baths. No ointments, lotions or oils on the incision until your surgeon allows. Leave aida, sutures or glue in place. Neurological dysfunction that comes on suddenly can also be a sign of a stroke. Below some common symptoms of a stroke are listed: B - balance difficulty such as sudden onset walking or leaning to one side - NEW E - eye problem such as sudden double vision or trouble seeing on one side - NEW F - Facial weakness or numbness on one side - NEW A - Arm or leg weakness or numbness on one side - NEW S - Slurred speech or difficulty with word finding - NEW T - Time is BRAIN! Call 911 as soon as you recognize these symptoms Diet: Consume a regular diet rich in vegetables and lean protein such as chicken or fish. You should consume in a ratio of approximately 20% fats|40% carbohydrates|40%protein. Vegetables, sweet potatoes, brown rice or quinoa are examples of good carbohydrates. Chips, white bread, cookies and sweets/sugar are examples of bad carbohydrates. Limit your bad carbs, go wild with good carbs. 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 (1) Get Active. Physical activity can help people lose weight, control high blood pressure and cholesterol, feel emotionally better, and sleep better. (2) Control Cholesterol. Avoid a diet high in saturated fat, trans fat, & cholesterol. Limit whole milk & cream, ice cream, butter, egg yolks, processed meats (like sausage and hot dogs), and fatty meats. Choose healthy foods that are low in saturated fat, trans fat and cholesterol which include: Fruits and vegetables, fiber rich grain products (like whole grain pasta and brown rice), lean meat such as chicken, fish, nuts, seeds, and legumes. (3) Eat Better. Eat small portions. Shop at the grocery with a list and do not stray from it. Tips for a healthy diet include: Limit sodium intake to less than 1500mg daily, avoid prepackaged, processed, and fast foods, choose a diet rich in fruits, vegetables, and whole grain, high fiber foods, and limit saturated & cholesterol in your diet. (4) Manage Blood Pressure. If you have high blood pressure, you should have a cuff at home so that you can check your blood pressure regularly. Be sure you have a good cuff. An arm one is generally better than a wrist one. Bring the cuff to a doctor's appointment to validate that the measurements that your cuff are taking are accurate. Take your blood pressure twice daily when you are sitting down and relaxing. Record the numbers in a log and bring this log with you to your doctors' appointments. (5) Lose Weight if your BMI is above 25. A healthy BMI is between 19-25. To calculate Your BMI, you may use a Standard BMI Calculator on the NIH BMI website: <www.nhlbi.nih.gov/guidelines/obesity/BMI/bmicalc.htm>. Weigh oneself daily. If you are overweight, set a goal to lose weight. A pound a week loss if needed is a good target. (6) Reduce Blood Sugar. Limit foods and liquids with "added sugars." (Added sugars include sucrose, fructose, glucose, maltose, dextrose, high fructose corn syrup, corn syrup, concentrated fruit juice and honey). (7) Stop Smoking. If you smoke, quitting smoking is one of the best things that you can do for your health. Smoking increases your risk of heart attack, stroke, and peripheral vascular disease, which is a build-up of plaque in your arteries. Please discard all the cigarettes and lighters in your house. Have a plan for what you will do when you have the urge to smoke. Direct and second- hand smoke shortens your life as well as the lives of your family, friends and others around you. For your health and the health of those around you, please consider quitting! Proper Bending Body Mechanics: Maintain a wide stance with one foot slightly in front of the other. Keep your back straight. Bend utilizing the strength in your hips and knees. Do not bend at the waist. Maintain the lifted object at your waist-level close to your body. Avoid lifting weight that causes immediately pain or pain anywhere in the body afterwards. Smoking/Nicotine If there was ever one thing that you could do to increase your overall health, decrease your risk of cardiovascular problems by about 39% the second you make the choice, it is to STOP SMOKING. Your body's most instant gratification is the second you stop smoking. We have all heard the studies, read the articles but it is true, smoking is extremely bad for your overall health, and moreover it is detrimental to your bone health. Nicotine, IN ANY FORM, kills bone cells, prevents your body from healing fractures, and significantly prolongs healing after surgery. In spine surgery specifically, it increases your risk of not healing your bones to create a fusion and increases your risk of having a revision surgery due to this up to 60%. I know it is hard. I know it feels impossible. But there are ways. Take control of your life. We are here to help you through it. And when you are ready, ask us and we can direct you to help if you desire. Use the START Plan to Quit Smoking (please visit the Helpguide.org website listed below for more information): S = Set a quit date. Choose a date within the next 2 weeks, so you have enough time to prepare without losing your motivation to quit. If you mainly smoke at work, quit on the weekend, so you have a few days to adjust to the change. T = Tell family, friends, and co-workers that you plan to quit. Let your friends and family in on your plan to quit smoking and tell them you need their support and encouragement to stop. Look for a quit raquel who wants to stop smoking as well. You can help each other get through the rough times. A = Anticipate and plan for the challenges you'll face while quitting. Most people who begin smoking again do so within the first 3 months. You can help yourself make it through by preparing ahead for common challenges, such as nicotine withdrawal and cigarette cravings. R = Remove cigarettes and other tobacco products from your home, car, and work. Throw away all your cigarettes (no emergency pack!), lighters, ashtrays, and matches. Wash your clothes and freshen up anything that smells like smoke. Shampoo your car, clean your drapes and carpet, and steam your furniture. T = Talk to your doctor about getting help to quit. Your doctor can prescribe medication to help with withdrawal and suggest other alternatives. If you can't see a doctor, you can get many products over the counter at your local pharmacy or grocery store, including the nicotine patch, nicotine lozenges, and nicotine gum. Resources for Quitting Smoking: <https://www.[place].gov/documents/[facility]/Quit_Tobacco_Resources_for_patients_313 480_7.pdf> Supplementation: Take recommended dosages of Vitamin D and Calcium to help fortify your bones and help them to heal. See your health maintenance packet for dosages and recommended levels. DVT/VTE prophylaxis: You will be given compression stockings from the hospital. Wear these daily for the first two weeks after surgery. You may take them off at night. You may be prescribed a medication to help thin your blood. Take this as directed. If you are not prescribed this medication, early and frequent ambulation has been shown to be the best prophylaxis to deep vein thrombosis and sequelae related to this event. Procedures: L1 burst fracture ORIF, posterior stabilization T10-L3 Patient Condition at Discharge: Good Plan - Discharge Summary Discharge Rx Participant: Yes New Discharge Prescriptions: New Cyclobenzaprine [Flexeril] 10 mg PO BID PRN #30 tab PRN Reason: Muscle Spasm oxyCODONE HCL/ACETAMINOPHEN [Percocet 7.5-325 mg] 1 tab PO Q4HR PRN 3 Days #18 tab PRN Reason: Pain Sennosides/Docusate Sodium [Senna-S 8.6-50 mg Tablet] 2 each PO DAILY PRN #30 tablet PRN Reason: Constipation cefaDROXiL [Duricef] 500 mg PO Q12HR 5 Days #10 cap No Action metFORMIN HCL 500 mg PO BID Montelukast [Singulair] 10 mg PO HS Fenofibrate [Lipofen] 145 mg PO QAM FLUoxetine HCL [PROzac] 40 mg PO QAM Acetaminophen Tab [Tylenol Tab] 1,000 mg PO Q6HR PRN PRN Reason: Pain Rosuvastatin [Crestor] 10 mg PO QAM Cariprazine HCl [Vraylar] 3 mg PO QAM Omeprazole [PriLOSEC] 20 mg PO QAM Discharge Medication List Acetaminophen Tab [Tylenol Tab] 1,000 mg PO Q6HR PRN 07/21/23 [History] Cariprazine HCl [Vraylar] 3 mg PO QAM 07/21/23 [History] FLUoxetine HCL [PROzac] 40 mg PO QAM 07/21/23 [History] Fenofibrate [Lipofen] 145 mg PO QAM 07/21/23 [History] Montelukast [Singulair] 10 mg PO HS 07/21/23 [History] Omeprazole [PriLOSEC] 20 mg PO QAM 07/21/23 [History] Rosuvastatin [Crestor] 10 mg PO QAM 07/21/23 [History] metFORMIN HCL 500 mg PO BID 07/21/23 [History] Cyclobenzaprine [Flexeril] 10 mg PO BID PRN #30 tab 07/23/23 [Rx] Sennosides/Docusate Sodium [Senna-S 8.6-50 mg Tablet] 2 each PO DAILY PRN #30 tablet 07/23/23 [Rx] cefaDROXiL [Duricef] 500 mg PO Q12HR 5 Days #10 cap 07/23/23 [Rx] oxyCODONE HCL/ACETAMINOPHEN [Percocet 7.5-325 mg] 1 tab PO Q4HR PRN 3 Days #18 tab 07/23/23 [Rx] Follow up Appointment(s)/Referral(s): Lenin Unger DO [Doctor of Osteopathic Medicine] - 2 Weeks Activity/Diet/Wound Care/Special Instructions: Spine Discharge and Recovery Instructions All medication refills should be obtained through your primary care doctor or your clinic spine surgeon. Please discuss prescription refills at your follow up appointment. Do not call the hospital for medication refills. Dressing: Leave your dressing in place for a total of 5 days post operatively. Then you may remove your dressing and leave open to air. Keep the area clean and if not able to keep area clean, then cover with sterile gauze and tape. Showering: You may shower 3 days after your procedure allowing soap and water to run over incision. Do not scrub. Do not soak. Blot dry. Follow up: Please confirm a follow up appointment with your surgeon 3 weeks post operatively. Please make an appointment to follow up with your PCP in 1-2 weeks after surgery for evaluation 3 phase, 3-week plan POST OP WEEKS 1-3 1. Lifting/carrying/pushing/pulling limited to less than 5 pounds. 2. Do not sit for longer than 15 minutes at one time. Get up and walk around. Prolonged sitting is NOT advised. If you lay down, see if you can tolerate laying down on you front (belly side) 3. Walk for periods of 15 minutes = 1 mile but no longer; do it multiple times times each day. 4. Ice your low back after activity. POST OP WEEKS 3-6 1. Lifting limited to less than 20 pounds. 2. Do not sit for longer than 30 minutes at a time. Frequently change positions. Use a sit-to stand workstation or take frequent breaks from sitting if you have returned to work. 3. Walk for 30 minutes each day. If possible, do these three or more times a day POST OP WEEKS 6+ At your 6-week appointment we will give you a physical therapy referral to focus on a core stabilization and strengthening program. You should also work on leg & buttock strengthening, hamstring & quadriceps stretching, and continue a low impact aerobic activity program such as swimming, walking, or riding a stationary bicycle. During the initial 6 weeks after your surgery, you are at the highest risk of re-injuring your spine. You should generally avoid BLTs (bending, lifting and twisting combination motions) and follow the above guidelines to reduce the chance of reinjury. You can anticipate post op appointments in our office at approximately 3 weeks and 6 weeks after your surgery. INCISION CARE: If your incision is not draining you do NOT need to cover it with a dressing. Keep your incision clean, dry and intact. In most cases, we apply skin glue, aida or sutures to the incision at the time of surgery. This will be like a crust or have the appearance of a scab and will fall off in time on its own. The stitches or aida need to be removed at 3 weeks post op appointment. You may begin to shower 3 days after surgery (this allows the glue to fracnisco well). However, please avoid scrubbing the incision site or peeling off any of the skin glue. This will ensure optimal healing of your incision. Also, during this time avoid soaking the incision area in water - this includes swimming pools, hot tubs or baths. No ointments, lotions or oils on the incision until your surgeon allows. Leave aida, sutures or glue in place. Neurological dysfunction that comes on suddenly can also be a sign of a stroke. Below some common symptoms of a stroke are listed: B - balance difficulty such as sudden onset walking or leaning to one side - NEW E - eye problem such as sudden double vision or trouble seeing on one side - NEW F - Facial weakness or numbness on one side - NEW A - Arm or leg weakness or numbness on one side - NEW S - Slurred speech or difficulty with word finding - NEW T - Time is BRAIN! Call 911 as soon as you recognize these symptoms Diet: Consume a regular diet rich in vegetables and lean protein such as chicken or fish. You should consume in a ratio of approximately 20% fats|40% carbohydrates|40%protein. Vegetables, sweet potatoes, brown rice or quinoa are examples of good carbohydrates. Chips, white bread, cookies and sweets/sugar are examples of bad carbohydrates. Limit your bad carbs, go wild with good carbs. "Life's Simple 7" Guidelines as per [place] [employer] These will help you reclaim your life after surgery and extractor operator helper in your recovery, keeping in mind your restrictions. (1) Get Active. Physical activity can help people lose weight, control high blood pressure and cholesterol, feel emotionally better, and sleep better. (2) Control Cholesterol. Avoid a diet high in saturated fat, trans fat, & cholesterol. Limit whole milk & cream, ice cream, butter, egg yolks, processed meats (like sausage and hot dogs), and fatty meats. Choose healthy foods that are low in saturated fat, trans fat and cholesterol which include: Fruits and vegetables, fiber rich grain products (like whole grain pasta and brown rice), lean meat such as chicken, fish, nuts, seeds, and legumes. (3) Eat Better. Eat small portions. Shop at the grocery with a list and do not stray from it. Tips for a healthy diet include: Limit sodium intake to less than 1500mg daily, avoid prepackaged, processed, and fast foods, choose a diet rich in fruits, vegetables, and whole grain, high fiber foods, and limit saturated & cholesterol in your diet. (4) Manage Blood Pressure. If you have high blood pressure, you should have a cuff at home so that you can check your blood pressure regularly. Be sure you have a good cuff. An arm one is generally better than a wrist one. Bring the cuff to a doctor's appointment to validate that the measurements that your cuff are taking are accurate. Take your blood pressure twice daily when you are sitting down and relaxing. Record the numbers in a log and bring this log with you to your doctors' appointments. (5) Lose Weight if your BMI is above 25. A healthy BMI is between 19-25. To calculate Your BMI, you may use a Standard BMI Calculator on the NIH BMI website: <www.nhlbi.nih.gov/guidelines/obesity/BMI/bmicalc.htm>. Weigh oneself daily. If you are overweight, set a goal to lose weight. A pound a week loss if needed is a good target. (6) Reduce Blood Sugar. Limit foods and liquids with "added sugars." (Added sugars include sucrose, fructose, glucose, maltose, dextrose, high fructose corn syrup, corn syrup, concentrated fruit juice and honey). (7) Stop Smoking. If you smoke, quitting smoking is one of the best things that you can do for your health. Smoking increases your risk of heart attack, stroke, and peripheral vascular disease, which is a build-up of plaque in your arteries. Please discard all the cigarettes and lighters in your house. Have a plan for what you will do when you have the urge to smoke. Direct and second- hand smoke shortens your life as well as the lives of your family, friends and others around you. For your health and the health of those around you, please consider quitting! Proper Bending Body Mechanics: Maintain a wide stance with one foot slightly in front of the other. Keep your back straight. Bend utilizing the strength in your hips and knees. Do not bend at the waist. Maintain the lifted object at your waist-level close to your body. Avoid lifting weight that causes immediately pain or pain anywhere in the body afterwards. Smoking/Nicotine If there was ever one thing that you could do to increase your overall health, decrease your risk of cardiovascular problems by about 39% the second you make the choice, it is to STOP SMOKING. Your body's most instant gratification is the second you stop smoking. We have all heard the studies, read the articles but it is true, smoking is extremely bad for your overall health, and moreover it is detrimental to your bone health. Nicotine, IN ANY FORM, kills bone cells, prevents your body from healing fractures, and significantly prolongs healing after surgery. In spine surgery specifically, it increases your risk of not healing your bones to create a fusion and increases your risk of having a revision surgery due to this up to 60%. I know it is hard. I know it feels impossible. But there are ways. Take control of your life. We are here to help you through it. And when you are ready, ask us and we can direct you to help if you desire. Use the START Plan to Quit Smoking (please visit the Helpguide.org website listed below for more information): S = Set a quit date. Choose a date within the next 2 weeks, so you have enough time to prepare without losing your motivation to quit. If you mainly smoke at work, quit on the weekend, so you have a few days to adjust to the change. T = Tell family, friends, and co-workers that you plan to quit. Let your friends and family in on your plan to quit smoking and tell them you need their support and encouragement to stop. Look for a quit raquel who wants to stop smoking as well. You can help each other get through the rough times. A = Anticipate and plan for the challenges you'll face while quitting. Most people who begin smoking again do so within the first 3 months. You can help yourself make it through by preparing ahead for common challenges, such as nicotine withdrawal and cigarette cravings. R = Remove cigarettes and other tobacco products from your home, car, and work. Throw away all your cigarettes (no emergency pack!), lighters, ashtrays, and matches. Wash your clothes and freshen up anything that smells like smoke. Shampoo your car, clean your drapes and carpet, and steam your furniture. T = Talk to your doctor about getting help to quit. Your doctor can prescribe medication to help with withdrawal and suggest other alternatives. If you can't see a doctor, you can get many products over the counter at your local pharmacy or grocery store, including the nicotine patch, nicotine lozenges, and nicotine gum. Resources for Quitting Smoking: <https://www.[place].gov/documents/[facility]/Quit_Tobacco_Resources_for_patients_313 480_7.pdf> Supplementation: Take recommended dosages of Vitamin D and Calcium to help fortify your bones and help them to heal. See your health maintenance packet for dosages and recommended levels. DVT/VTE prophylaxis: You will be given compression stockings from the hospital. Wear these daily for the first two weeks after surgery. You may take them off at night. You may be prescribed a medication to help thin your blood. Take this as directed. If you are not prescribed this medication, early and frequent ambulation has been shown to be the best prophylaxis to deep vein thrombosis and sequelae related to this event. Discharge Disposition: HOME SELF-CARE
[2023-07-23] MEDS ORDERED: MONTELUKAST 10 MG TAB PO SCH (21:00)
[2023-07-24] MEDS ORDERED: PANTOPRAZOLE 40 MG TABLET PO SCH (07:30)
== END 2023-07-23 14:45 | disposition home or self-care (01) | DRG 310 ==
LOC: EDSTATUS 13:30 → 2ORMAIN 14:50 → 4SSUR 21:06
PROVIDERS: ADMIT Orthopaedic Surgery; ATTEND Orthopaedic Surgery
PROC: 0QB00ZX Excision of Lumbar Vertebra, Open Approach, Diagnostic (ICD-10-PCS; 2023-07-22)
PROC: 8E0WXBZ Computer Assisted Procedure of Trunk Region (ICD-10-PCS; 2023-07-22)
PROC: XNU0356 Supplement Lumbar Vertebra with Mechanically Expandable (Paired) Synthetic Substitute, Percutaneous Approach, New Technology Group 6 (ICD-10-PCS; principal; 2023-07-22 16:45)
DX: S32.011A Stable burst fracture of first lumbar vertebra, initial encounter for closed fracture (principal); E11.9 Type 2 diabetes mellitus without complications; J45.909 Unspecified asthma, uncomplicated; E66.9 Obesity, unspecified; G89.29 Other chronic pain; E78.5 Hyperlipidemia, unspecified; F17.210 Nicotine dependence, cigarettes, uncomplicated; G47.33 Obstructive sleep apnea (adult) (pediatric); W19.XXXA Unspecified fall, initial encounter; Z79.899 Other long term (current) drug therapy; Z79.84 Long term (current) use of oral hypoglycemic drugs
CPT/HCPCS: 36415; 72100; 72131; 80048; 85025; 86850; 86900; 86901

== ENCOUNTER → 2025-04-17 | Outpatient (CLI) | payer OTHER ==
--- NOTE | 2025-04-17 16:29 | XR ---
EXAMINATION TYPE: XR chest 2V DATE OF EXAM: 04/17/2025 4:17 PM COMPARISON: None. CLINICAL INDICATION: Male, 39 years old with history of J44.9 CHRONIC OBSTRUCTIVE PULMONARY DISEASE, UNSPE, TECHNIQUE: XR chest 2V view(s) obtained. FINDINGS: The heart size is normal. The pulmonary vasculature is normal. The lungs are clear. Recommend lumbar fixation is at the edge of the [id number] IMPRESSION: 1. No acute pulmonary process. [facility], , 04/17/2025 4:27 PM
== END | disposition home or self-care (01) ==
LOC: RADXRMAIN 16:05
PROVIDERS: ATTEND Internal Medicine Geriatric Medicine
DX: J44.9 Chronic obstructive pulmonary disease, unspecified (principal)
CPT/HCPCS: 71046